=== PATIENT | female | born 1990 | race African-American/Black ===

== ENCOUNTER 2016-04-26 17:37 | Emergency (ER) | payer OTHER ==
[~2016-04-26] VITALS: Ht 172.7 cm; Wt 55.0 kg
[~2016-04-26 17:37] MED LIST: IBUP800 PO; PREN1TAB30; VITA20003
[2016-04-26 17:38] VITALS: BP 118/79; PULSE 88; RESP 16; TEMP 99.6; O2SAT 99
[2016-04-26] MEDS ORDERED: HYDR-3133 PO (17:57)
[2016-04-26] MEDS ORDERED: AZIT250T3 PO (17:57)
[2016-04-26] MEDS ORDERED: HUMALOG SQ ×2 (17:57→20:03)
[2016-04-26] MEDS ORDERED: LEVEMIR SQ (17:57)
[2016-04-26] MEDS ORDERED: SODIUM CHLORIDE 0.9% FLUSH 5 ML FLUSH IVF PRN (18:15)
--- NOTE | 2016-04-26 18:15 | PD ---
HPI Chief Complaint: Diabetic Time Seen by Provider: 18:15 Travel History International Travel<30 days: No Contact w/Intl Traveler<30days: No Traveled to known affect area: No [facility] Past Medical History Diabetes: Yes Patient Takes Glucophage: No Diminished Hearing: No Tetanus Vaccination: > 5 Years Influenza Vaccination: No ?: Not LMP: CURRENTLY ON CYCLE Past Surgical History Surgical History: No Previous Surgery Social History Alcohol Use: No Tobacco Use: No Substance Use: No Allergies-Medications (Allergen,Severity, Reaction): Coded Allergies: No Known Allergies (Unverified , 03/31/13) Reported Meds & Prescriptions Reported Meds & Active Scripts Active Reported Azithromycin 250 Mg Tab 250 Mg PO DAILY Hydroxyzine HCl 25 Mg Tab 25 Mg PO QID Levemir Inj (Insulin Detemir) 1,000 unit/ 10 ML Vial 10 Units SQ HS Do not mix with any other Insulin. Humalog Inj (Insulin Human Lispro) 1,000 Unit/10 Ml Vial 5 Units SQ TIDAC Data Data Last Documented VS Vital Signs Date Time Temp Pulse Resp B/P Pulse Ox O2 Delivery O2 Flow Rate FiO2 04/26/16 17:57 16 98 04/26/16 17:38 99.6 88 118/79 Room Air Orders Complete Blood Count With Diff (04/26/16 18:14) Comprehensive Metabolic Panel (04/26/16 18:14) Beta Hydroxybutyrate (Acetone) (04/26/16 18:14) Urinalysis - C+S If Indicated (04/26/16 18:14) Ecg Monitoring (04/26/16 18:14) Iv Access Insert/Monitor (04/26/16 18:14) Oximetry (04/26/16 18:14) NPO (04/26/16 18:14) Sodium Chloride 0.9% Flush (Ns Flush) (04/26/16 18:15) Damari Mayberry Apr 26, 2016 18:15
--- NOTE | 2016-04-26 18:21 | PD ---
HPI Chief Complaint: Diabetic Time Seen by Provider: 18:16 Travel History International Travel<30 days: No Contact w/Intl Traveler<30days: No Traveled to known affect area: No History of Present Illness HPI 25-year-old female with history of insulin-dependent diabetic, presents to the ER today because she states that she had the flu last week and has not been feeling well since, has not eaten well, has had some nausea, body aches, fevers , and states that her blood sugars were elevated today in the 300s. She denies any chest pains, shortness of breath, abdominal pains, or any other symptoms. She had seen her primary care physician for the flu and has been given medications for relief. Modifying Factors: None Associated Signs & Symptoms: Nausea, poor by mouth intake, body aches, fatigue, fevers after having the flu, elevated blood sugars Risk Factors: Diabetes PFSH Past Medical History Diabetes: Yes Patient Takes Glucophage: No Diminished Hearing: No Tetanus Vaccination: > 5 Years Influenza Vaccination: No ?: Not LMP: CURRENTLY ON CYCLE Past Surgical History Surgical History: No Previous Surgery Social History Alcohol Use: No Tobacco Use: No Substance Use: No Allergies-Medications (Allergen,Severity, Reaction): Coded Allergies: No Known Allergies (Unverified , 03/31/13) Reported Meds & Prescriptions Reported Meds & Active Scripts Active Reported Azithromycin 250 Mg Tab 250 Mg PO DAILY Hydroxyzine HCl 25 Mg Tab 25 Mg PO QID Levemir Inj (Insulin Detemir) 1,000 unit/ 10 ML Vial 10 Units SQ HS Do not mix with any other Insulin. Humalog Inj (Insulin Human Lispro) 1,000 Unit/10 Ml Vial 5 Units SQ TIDAC Review of Systems Except as stated in HPI: all other systems reviewed are Neg Physical Exam Narrative GENERAL: Well-nourished, well-developed young -[place] female patient in no acute distress. SKIN: Warm and dry. HEAD: Normocephalic. EYES: No scleral icterus. No injection or drainage. NECK: Supple, trachea midline. CARDIOVASCULAR: Regular rate and rhythm without murmurs, gallops, or rubs. RESPIRATORY: Breath sounds equal bilaterally. No accessory muscle use. GASTROINTESTINAL: Abdomen soft, non-tender, nondistended. MUSCULOSKELETAL: No cyanosis, or edema. BACK: Nontender without obvious deformity. No CVA tenderness. Data Data Last Documented VS Vital Signs Date Time Temp Pulse Resp B/P Pulse Ox O2 Delivery O2 Flow Rate FiO2 04/26/16 18:37 100 Room Air 04/26/16 17:57 16 04/26/16 17:38 99.6 88 118/79 Orders Complete Blood Count With Diff (04/26/16 18:14) Comprehensive Metabolic Panel (04/26/16 18:14) Beta Hydroxybutyrate (Acetone) (04/26/16 18:14) Urinalysis - C+S If Indicated (04/26/16 18:14) Ecg Monitoring (04/26/16 18:14) Iv Access Insert/Monitor (04/26/16 18:14) Oximetry (04/26/16 18:14) NPO (04/26/16 18:14) Sodium Chloride 0.9% Flush (Ns Flush) (04/26/16 18:15) Sodium Chlor 0.9% 1000 Ml Inj (Ns 1000 M (04/26/16 18:30) Insulin Human Regular Inj (Novolin R Inj (04/26/16 19:45) Labs Laboratory Tests Test 04/26/16 04/26/16 18:26 18:32 White Blood Count 2.1 TH/MM3 Red Blood Count 4.26 MIL/MM3 Hemoglobin 11.3 GM/DL Hematocrit 35.9 % Mean Corpuscular Volume 84.3 FL Mean Corpuscular Hemoglobin 26.6 PG Mean Corpuscular Hemoglobin 31.6 % Concent Red Cell Distribution Width 14.8 % Platelet Count 227 TH/MM3 Mean Platelet Volume 8.6 FL Neutrophils (%) (Auto) 17.9 % Lymphocytes (%) (Auto) 66.0 % Monocytes (%) (Auto) 15.2 % Eosinophils (%) (Auto) 0.2 % Basophils (%) (Auto) 0.7 % Neutrophils # (Auto) 0.4 TH/MM3 Lymphocytes # (Auto) 1.4 TH/MM3 Monocytes # (Auto) 0.3 TH/MM3 Eosinophils # (Auto) 0.0 TH/MM3 Basophils # (Auto) 0.0 TH/MM3 CBC Comment AUTO DIFF Sodium Level 137 MEQ/L Potassium Level 3.6 MEQ/L Chloride Level 101 MEQ/L Carbon Dioxide Level 27.0 MEQ/L Anion Gap 9 MEQ/L Blood Urea Nitrogen 6 MG/DL Creatinine 0.76 MG/DL Estimat Glomerular Filtration 110 ML/MIN Rate Random Glucose 305 MG/DL Calcium Level 8.7 MG/DL Total Bilirubin 0.6 MG/DL Aspartate Amino Transf 22 U/L (AST/SGOT) Alanine Aminotransferase 17 U/L (ALT/SGPT) Alkaline Phosphatase 69 U/L Total Protein 8.0 GM/DL Albumin 3.6 GM/DL B-Hydroxybutyrate 0.20 MMOL/L Urine Color YELLOW Urine Turbidity CLEAR Urine pH 6.5 Urine Specific [place] 1.044 Urine Protein NEG mg/dL Urine Glucose (UA) 1000 mg/dL Urine Ketones TRACE mg/dL Urine Occult Blood LARGE Urine Nitrite NEG Urine Bilirubin NEG Urine Urobilinogen LESS THAN 2.0 MG/DL Urine Leukocyte Esterase NEG Urine RBC 3 /hpf Urine WBC 2 /hpf Urine Squamous Epithelial 4 /hpf Cells Urine Mucus FEW /lpf Microscopic Urinalysis Comment CULT NOT INDICATED MDM Medical Decision Making Medical Screen Exam Complete: Yes Emergency Medical Condition: Yes Medical Record Reviewed: Yes Interpretation(s) Laboratory Tests Test 04/26/16 04/26/16 18:26 18:32 White Blood Count 2.1 TH/MM3 (4.0-11.0) Hemoglobin 11.3 GM/DL (11.6-15.3) Mean Corpuscular Hemoglobin 26.6 PG (27.0-34.0) Mean Corpuscular Hemoglobin 31.6 % Concent (32.0-36.0) Lymphocytes (%) (Auto) 66.0 % (9.0-44.0) Monocytes (%) (Auto) 15.2 % (0.0-8.0) Neutrophils # (Auto) 0.4 TH/MM3 (1.8-7.7) Blood Urea Nitrogen 6 MG/DL (7-18) Random Glucose 305 MG/DL (74-106) Urine Specific [place] 1.044 (1.002-1.035) Urine Glucose (UA) 1000 mg/dL (NEG) Urine Ketones TRACE mg/dL (NEG) Urine Occult Blood LARGE (NEG) Urine Mucus FEW /lpf (OCC) Differential Diagnosis Nausea, fatigue, fevers, body aches, influenza, elevated blood sugarsrule out metabolic issues versus dehydration versus DKA Narrative Course Vital signs are stable in the ER. Lab work did not show significant electrolyte abnormalities other than hyperglycemia. She does not have any signs of significant dehydration. Ketones are negative. She was given IV fluids and insulin in the ER. At this point, my plan would be to release her with follow-up to primary care physician. Continue taking insulin and checking blood sugars as previously directed. Return for any worsening in symptoms as necessary. The plan has been discussed with her and she states understanding. She is sitting comfortably in the ER eating her dinner. Diagnosis Primary Impression: HYPERGLYCEMIA, UNSPECIFIED Disposition: 01 DISCHARGE HOME Condition: Stable Vandana Farley MD Apr 26, 2016 18:21
[2016-04-26] MEDS ORDERED: SODIUM CHLOR 0.9% 1000 ML INJ 1,000 ML IV ONE (18:30)
[2016-04-26 18:37] VITALS: O2SAT 100
[2016-04-26 18:47] LABS: BASOPHIL % 0.7 % (0.0-2.0); EOSINOPHIL % 0.2 % (0.0-4.0); HEMATOCRIT 35.9 % (35.0-46.0); LYMPHOCYTE # 1.4 TH/MM3 (1.0-4.8); MEAN CELL VOLUME 84.3 FL (80.0-100.0); MEAN CORPUSCULAR HEMOGLOBIN 26.6 PG (27.0-34.0); MEAN CORPUSCULAR HGB CONC 31.6 % (32.0-36.0); MONO % 15.2 % (0.0-8.0); NEUT % 17.9 % (16.0-70.0); PLATELET COUNT 227 TH/MM3 (150-450); RED BLOOD COUNT 4.26 MIL/MM3 (4.00-5.30); RED CELL DISTRIBUTION WIDTH 14.8 % (11.6-17.2); WHITE BLOOD COUNT 2.1 TH/MM3 (4.0-11.0)
[2016-04-26 18:49] LABS: BLOOD, URINE LARGE (NEG); COMMENT (UR) CULT NOT INDICATED; CULTURE IF INDICATED CULT NOT INDICATED; GLUCOSE,URINE 1000 mg/dL (NEG); KETONE, URINE TRACE mg/dL (NEG); MUCUS URINE FEW /lpf (OCC); NITRITE,URINE NEG (NEG); PH, URINE 6.5 (5.0-8.5); SQUAMOUS EPITHELIAL CELL URINE 4 /hpf (0-5); URINE COLOR YELLOW (YELLW/STRAW)
[2016-04-26 19:00] LABS: HEMO FLAGS AUTO DIFF
[2016-04-26 19:19] LABS: ANION GAP 9 MEQ/L (5-15); AST (GOT) 22 U/L (15-37); BLOOD UREA NITROGEN 6 MG/DL (7-18); CHLORIDE 101 MEQ/L (98-107); GLOMERULAR FILTRATION RATE 110 ML/MIN (>89); POTASSIUM 3.6 MEQ/L (3.5-5.1); SODIUM (NA) 137 MEQ/L (136-145)
[2016-04-26 19:22] LABS: ALKALINE PHOSPHATASE 69 U/L (45-117); ALT (GPT) 17 U/L (10-53); TOTAL BILIRUBIN ADULT 0.6 MG/DL (0.2-1.0)
[2016-04-26] MEDS ORDERED: INSULIN HUMAN REGULAR 1,000 UNITS/10 ML VIAL IV PUSH ONE (19:45)
[2016-04-26 20:09] LABS: BANDS 7 % (0-6); BASOPHILS 1 % (0-2); POLYS (SEG NEUTROPHILS) 16 % (16-70); WBC DIFF SAMPLE 100
[2016-04-26 20:10] LABS: PLATELET ESTIMATE SMEAR NORMAL (NORMAL); PLATELET MORPHOLOGY NORMAL (NORMAL)
[2016-04-26 20:17] LABS: SCAN/DIFF FINAL DIFF MANUAL
[2016-04-26 20:18] LABS: AUTOMATED NEUTROPHIL # 0.4 TH/MM3 (1.8-7.7)
[2016-04-26 20:19] LABS: NEUTROPHIL # MANUAL DIFF 0.5 TH/MM3 (1.8-7.7)
== END 2016-04-26 20:52 | disposition home or self-care (01) ==
LOC: NEPA 17:37
DX: E11.65 Type 2 diabetes mellitus with hyperglycemia (principal); Z79.4 Long term (current) use of insulin
CPT/HCPCS: 80053; 81001; 82010; 85007; 85027; 96361; 96374; 99284; J1815; J7030